=== PATIENT | male | born 1985 | race Caucasian/White ===

== ENCOUNTER 2020-05-18 08:09 | Emergency (ER) | payer BC, SELFPAY ==
[2020-05-18 08:31] VITALS: BP 135/89; PULSE 78; RESP 16; TEMP 36.8; O2SAT 99
--- NOTE | 2020-05-18 08:34 | ED.GENADULT ---
HPI - General Adult General Chief complaint: Extremity Injury, Lower Stated complaint: left leg infection Time Seen by Provider: 05/18/20 08:34 Source: patient Mode of arrival: ambulatory Limitations: no limitations History of Present Illness HPI narrative: 35-year-old male patient presents to the [facility] with complaints of a very slight tender mass to the left leg x3 days. 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 Patient states he was having some pain that radiated down to the leg but does feel better since going to the chiropractor. Patient denies any warmth or swelling to the leg. Patient able to walk with no issues. Patient states he also uses hormone replacement so does give himself injections to the area but states he is really good about spacing out the injections the last time he injected himself in that area was probably a week or 2 ago. Denies any fevers, body aches or chills. Related Data Home Medications Medication Instructions Recorded Confirmed amlodipine [Norvasc] 10 mg PO DAILY 05/18/20 05/18/20 lisinopril [Zestril] 20 mg PO DAILY 05/18/20 05/18/20 testosterone cypionate 1 mg 05/18/20 [Depo-Testosterone] zolpidem [Ambien CR] 12.5 mg PO HS 05/18/20 05/18/20 Allergies Allergy/AdvReac Type Severity Reaction Status Date / Time Penicillins Allergy Mild Hives Verified 05/18/20 08:33 shellfish derived Allergy Mild Hives Verified 05/18/20 08:33 SHELLFISH Allergy Mild Hives Uncoded 05/18/20 08:33 Review of Systems Review of Systems: Narrative: CONSTITUTIONAL: Denies fever, chills, or sweats. EYES: Denies visual changes, redness, or discharge. ENT: Denies rhinorrhea, congestion, sore throat, or otalgia. CARDIOVASCULAR: Denies chest pain, palpitations, or edema. RESPIRATORY: Denies cough or dyspnea. GASTROINTESTINAL: Denies abdominal pain, nausea, vomiting, or diarrhea. GENITOURINARY: Denies dysuria or hematuria. SKIN: Denies rash or itching. MUSCULOSKELETAL: Denies back pain, joint pain, or myalgia. Positive left leg/thigh pain x3 days NEUROLOGIC: Denies headache, numbness, or weakness. PSYCHIATRIC: Denies anxiety or depression. 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 There is no relevant family history pertinent to the presenting complaint. Exam Narrative: Exam Narrative: GENERAL: Well-appearing, well-nourished, and in no acute distress. HEAD: Normocephalic, atraumatic. EYES: PERRLA and EOMI. ENT: Nares clear, no rhinorrhea or epistaxis. Mucous membranes moist. NECK: Supple. No lymphadenopathy CHEST: Clear to auscultation. No respiratory distress. HEART: Regular rate and rhythm. No murmur heard. Normal peripheral pulses. ABDOMEN: Soft, nontender, nondistended, normal active bowel sounds. EXTREMITIES: Normal range of motion. No edema. Patient has a deep knot noted to the lateral side of the left thigh. There is no erythema there is no warmth present. Very slight tenderness on deep palpation. Patient able to walk with good steady gait. Has excellent range of motion to the leg and hip area.
== END 2020-05-18 08:45 | disposition home or self-care (01) ==
PROVIDERS: Emergency Provider Nurse Practitioner Family; PCP Internal Medicine
DX: S76.912A Strain of unspecified muscles, fascia and tendons at thigh level, left thigh, initial encounter (principal); X58.XXXA Exposure to other specified factors, initial encounter; I10 Essential (primary) hypertension
CPT/HCPCS: 99212; G0463

== ENCOUNTER 2022-04-23 08:03 | Emergency (ER) | payer BC, SELFPAY ==
--- NOTE | 2022-04-23 08:07 | ED.EXTPRO ---
HPI - Extremity Problem General Chief complaint: Extremity Problem,Nontraumatic Stated complaint: right 1st digit swollen Time Seen by Provider: 04/23/22 08:11 Source: patient, RN notes reviewed and old records reviewed Mode of arrival: ambulatory Limitations: no limitations History of Present Illness HPI Narrative: 37-year-old male presents to the [facility] with complaints of right great toe pain swelling to the lateral and plantar aspect. He has a large cord that he tried shaving down about a week ago. Noticed redness and swelling to the lateral aspect to the area he was shaving the corn. Patient reports that he was allergic to penicillins as a child, has received in his adult life. Has no issues with cephalosporins. Onset (ago): day(s) (2) Related Data Allergies Allergy/AdvReac Type Severity Reaction Status Date / Time Penicillins Allergy Mild Hives Verified 09/23/21 08:52 shellfish derived Allergy Mild Hives Verified 09/23/21 08:52 SHELLFISH Allergy Mild Hives Uncoded 09/23/21 08:52 Review of Systems Review of Systems: All systems reviewed & are unremarkable except as noted in HPI and below Constitutional: Constitutional: Reports no additional constitutional complaints Eyes: Eyes: Reports no additional eye complaints ENT: Reports system reviewed and no additional complaints, except as documented Cardiovascular: Cardiovascular: Reports no additional cardiovascular complaints, Denies chest pain and Denies dyspnea Respiratory: Respiratory: Reports no additional respiratory complaints, Denies chest congestion, Denies cough and Denies dyspnea Gastrointestinal: Gastrointestinal: Reports no additional gastrointestinal complaints, Denies abdominal pain, Denies nausea and Denies vomiting Musculoskeletal: Musculoskeletal: Reports as per HPI Integumentary/Breasts: Skin/Breast: Reports system reviewed and no additional complaints, except as docu Neurologic: Reports system reviewed and no additional complaints, except as documented Psychiatric: Psychiatric: Reports no additional psychiatric complaints Allergic/Immunologic: Allergic/Immunologic: Reports no additional allergic/immunologic complaints [facility] Past Medical History Medical History (Updated 04/23/22 @ 08:22 by Janine Abel APRN) Acute insomnia Benign essential hypertension Surgical History Surgical History Complication of skin graft Hx of LASIK Hx of tonsillectomy Family History Family History Father Hypertension Mother Diabetes mellitus Grandparent Diabetes mellitus Social History Social History (Updated 02/26/21 @ 09:28 by Priya Barnes [facility]) Second hand tobacco smoke exposure: No Alcohol intake: current Alcohol use details: occationally Substance use: never Substance use type: does not use 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 There is no relevant family history pertinent to the patient complaint. Exam Const: General: cooperative, healthy appearing, comfortable, no acute distress, well developed, alert, average body habitus and well nourished Nutritional Appearance: well nourished and obese Orientation/consciousness: patient oriented x3 Limitations: no limitations HENMT: Head: normal to inspection Ears: hearing grossly normal bilaterally and external ears normal Face/Nose/Sinus: Normal external nose present, Normal nares present, Normal nasal mucous membranes and turbinates present and normal facial exam Face and sinus: normal facial exam Mouth: Yes Normal oral and palatal mucosa present, Yes lip normal and Yes moist mucous membranes Eyes: General: appearance normal, both eyes and all related structures Alig
[2022-04-23 08:11] VITALS: BP 139/101; PULSE 88; RESP 16; TEMP 36.6; O2SAT 99
== END 2022-04-23 08:32 | disposition home or self-care (01) ==
PROVIDERS: Emergency Provider Nurse Practitioner; PCP Internal Medicine
DX: L84 Corns and callosities (principal); I10 Essential (primary) hypertension
CPT/HCPCS: 99213; G0463

== ENCOUNTER 2023-11-24 17:35 | Emergency (ER) | payer BC, SELFPAY ==
[2023-11-24 17:47] VITALS: BP 148/72; PULSE 91; RESP 18; TEMP 36.3; O2SAT 98
--- NOTE | 2023-11-24 17:59 | ED.SKABFB ---
HPI - Skin/Abscess/Foreign Bdy General Chief complaint: Skin/Abscess/Foreign Body Stated complaint: hollow spot right leg Time Seen by Provider: 11/24/23 17:48 Source: patient and RN notes reviewed Mode of arrival: ambulatory Limitations: no limitations History of Present Illness HPI narrative: Patient presents today requesting evaluation of his right lower leg. He has had a scab there for the last couple of weeks in an area of some varicose veins, but has noticed an area that feels hollow under the skin as well. He reports this area bess when pressure is applied. Denies redness, swelling worse than baseline. Related Data Home Medications Medication Instructions Recorded Confirmed tirzepatide 12.5 mg/0.5 mL 10 mg subcut WEEKLY 11/24/23 11/24/23 subcutaneous pen injector (Bebe) Allergies Allergy/AdvReac Type Severity Reaction Status Date / Time Penicillins Allergy Mild Hives Verified 11/24/23 17:53 shellfish derived Allergy Mild Hives Verified 11/24/23 17:53 SHELLFISH Allergy Mild Hives Uncoded 11/24/23 17:53 Review of Systems Review of Systems: CONSTITUTIONAL: Denies body aches, fever, chills, or sweats. EYES: Denies visual changes, redness, or discharge. ENT: Denies rhinorrhea, congestion, sore throat, or otalgia. CARDIOVASCULAR: Denies chest pain, palpitations, or edema. RESPIRATORY: Denies cough or dyspnea. GASTROINTESTINAL: Denies abdominal pain, nausea, vomiting, or diarrhea. GENITOURINARY: Denies dysuria or hematuria. SKIN: + abnormality of skin MUSCULOSKELETAL: Denies back pain, joint pain, or myalgia. NEUROLOGIC: Denies headache, numbness, tingling, or weakness. PSYCH: Denies depression or anxiety. [facility] Past Medical History Medical History Acute insomnia Benign essential hypertension Dyslipidemia Testosterone deficiency Surgical History Surgical History Complication of skin graft Hx of LASIK Hx of tonsillectomy Family History Family History Father Hypertension Mother Diabetes mellitus Grandparent Diabetes mellitus Social History Social History Smoking status: Never smoker Second hand tobacco smoke exposure: No Alcohol intake: current Alcohol use details: occationally Substance use: never Substance use type: does not use Lack of Transportation: No Lack of Food: Never True Current Housing: I Have Housing Concerned About Future Housing: No Difficulty Paying Gas/Electric Bills: No Difficulty Paying for Meds: No Currently Unemployed: No Education: Bachelor's Degree Difficulty w/ Childcare or Family Care: No Living arrangements: alone Occupation/Education: occupation 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 HEAD: Normocephalic, atraumatic. EYES: EOMI. No redness or drainage. Conjunctivae normal. ENT: Mucous membranes pink and moist. NECK: Normal AROM. CHEST: No respiratory distress. EXTREMITIES: Significant varicose veins in the bilateral lower legs. Patient has a small scab to the right calf with surrounding spider veins. Medially to the scabbed there is a small area that patient states feels, ?hollow? that seems to be a varying in distribution of adipose tissue under the skin. No erythema, induration, fluctuance. SKIN: Warm, dry, no rash. Capillary refill normal. Normal skin turgor. NEURO: No focal deficits. Alert and oriented x3. Gait steady. PSYCH: Normal affect. No signs of depression or anxiety. Course Course Level of Care: Express Care Visit Vital Signs Vital signs: Vital Signs Temperature
== END 2023-11-24 18:05 | disposition home or self-care (01) ==
PROVIDERS: Emergency Provider Nurse Practitioner; PCP Family Medicine
DX: Z04.89 Encounter for examination and observation for other specified reasons (principal); I10 Essential (primary) hypertension; E78.5 Hyperlipidemia, unspecified
CPT/HCPCS: 99211; G0463